=== PATIENT | female | born 1955 | race Two or more races ===

== ENCOUNTER 2020-06-07 16:38 | Emergency (ER) | payer OTHER ==
[~2020-06-07] VITALS: Ht 154.9 cm; Wt 65.3 kg
[2020-06-07 16:56] VITALS: BP 135/87
--- NOTE | 2020-06-07 17:59 | NUR ---
COVID SWAB SENT. DPatient discharged to home in stable condition. Written and verbal after care instructions given. Patient verbalizes understanding of instruction.
== END 2020-06-07 18:00 | disposition home or self-care (01) ==
LOC: ER 16:45
DX: U07.1 COVID-19 (principal); R51.9 Headache, unspecified; M79.10 Myalgia, unspecified site; Z86.718 Personal history of other venous thrombosis and embolism; Z87.442 Personal history of urinary calculi
CPT/HCPCS: 99283; C9803; U0003

== ENCOUNTER 2020-07-10 08:04 | Emergency (ER) | payer BC, OTHER ==
[~2020-07-10] VITALS: Ht 154.9 cm; Wt 59.0 kg
--- NOTE | 2020-07-10 08:04 | NUR ---
PT BIB SELF C/O RLE PAIN AND SWELLING, HX OF DVT. FATIGUE AND FEELING SOB. PT IS AAOX4, NOT IN RESPIRATORY DISTRESS, V/S STABLE, KEPT RESTED AND COMFORTABLE. WILL CONTINUE TO MONITOR.
--- NOTE | 2020-07-10 08:42 | NUR ---
PT SEEN AND EXAMINED BY .
--- NOTE | 2020-07-10 08:48 | NUR ---
ER PHLEB AT BEDSIDE FOR BLOOD DRAW.
[2020-07-10 09:10] LABS: BASOPHILS # (AUTO) 0.1 /CMM (0.0-0.2); BASOPHILS % (AUTO) 1.4 % (0.0-2.0); EOSINOPHILS % (AUTO) 4.1 % (0.0-6.0); HEMATOCRIT 39 % (33-45); LYMPHOCYTES # (AUTO) 2.4 /CMM (0.8-4.8); LYMPHOCYTES % (AUTO) 43.1 % (20.0-44.0); MEAN CORPUSCULAR HGB CONC 34 g/dl (31.0-36.0); MEAN CORPUSCULAR VOLUME 93 fL (82-100); MONOCYTES # (AUTO) 0.4 /CMM (0.1-1.30); MONOCYTES % (AUTO) 7.3 % (2.0-12.0); NEUTROPHILS # (AUTO) 2.4 /CMM (1.8-8.9); NEUTROPHILS % (AUTO) 44.1 % (43.0-81.0); PLATELET COUNT (AUTO) 180 /CMM (150-450); RED BLOOD CELL COUNT(AUTO) 4.16 MIL/uL (4.0-5.2); WHITE BLOOD COUNT (AUTO) 5.5 K/uL (4.3-11.0)
[2020-07-10 09:29] LABS: CALCIUM, SERUM 8.9 mg/dL (8.5-10.1); CARBON DIOXIDE 29 mmol/L (21-32); CHLORIDE 103 mmol/L (98-107); CREATININE 0.9 mg/dL (0.6-1.3); GLUCOSE 120 mg/dL (74-106); POTASSIUM 3.1 mmol/L (3.5-5.1); SODIUM SERUM 141 mmol/L (136-145); UREA NITROGEN, BLOOD 15 mg/dL (7-18)
[2020-07-10 09:41] LABS: B-TYPE NATRIURETIC PEPTIDE 92 PG/ML (0-125)
--- NOTE | 2020-07-10 09:46 | NUR ---
STORE KEEPER AT BEDSIDE FOR XRAY.
--- NOTE | 2020-07-10 12:16 | NUR ---
PICKED UP BY [employer] VIA [facility] FOR CTA
[2020-07-10] MEDS ORDERED: IOHEXOL-350 100 ML VIAL IV ONE (12:20)
[2020-07-10] MEDS ORDERED: IV NS 0.9% 250 ML IV ONE (12:20)
--- NOTE | 2020-07-10 12:49 | NUR ---
PATIENT BACK FROM CTA
--- NOTE | 2020-07-10 13:45 | NUR ---
IV removed. Catheter intact and site benign. Pressure and 4x4 applied to site. No bleeding noted.Patient discharged to home in stable condition. Written and verbal after care instructions given. Patient verbalizes understanding of instruction.
[2020-07-10 13:49] VITALS: BP 122/67
== END 2020-07-10 13:49 | disposition home or self-care (01) ==
LOC: ER 08:08
DX: R06.02 Shortness of breath (principal); Z87.442 Personal history of urinary calculi
CPT/HCPCS: 36415; 71045; 71275; 80048; 83880; 84484; 85025; 85378; 93005; 93971; 99285; J7050; Q9967

== ENCOUNTER 2021-02-25 20:21 | Emergency (ER) | payer BC, OTHER ==
[~2021-02-25] VITALS: Ht 154.9 cm; Wt 63.5 kg
[2021-02-25 21:06] VITALS: BP 150/75
[2021-02-25] MEDS ORDERED: TRIA15CR2 TP (21:35)
[2021-02-25] MEDS ORDERED: LORA10TA68 PO (21:35)
== END 2021-02-25 21:40 | disposition home or self-care (01) ==
LOC: ER 20:30
DX: S40.862A Insect bite (nonvenomous) of left upper arm, initial encounter (principal); S40.861A Insect bite (nonvenomous) of right upper arm, initial encounter; S80.862A Insect bite (nonvenomous), left lower leg, initial encounter; S80.861A Insect bite (nonvenomous), right lower leg, initial encounter; Z79.899 Other long term (current) drug therapy; W57.XXXA Bitten or stung by nonvenomous insect and other nonvenomous arthropods, initial encounter; Y93.89 Activity, other specified; Y92.89 Other specified places as the place of occurrence of the external cause; Y99.8 Other external cause status

== ENCOUNTER 2021-03-06 09:38 | Outpatient (CLI) | payer BC, OTHER ==
[~2021-03-06 09:38] MED LIST: LORA10TA68 PO; TRIA15CR2 TP
[2021-03-06 12:47] LABS: BASOPHILS # (AUTO) 0.1 K/uL (0.0-0.2); BASOPHILS % (AUTO) 0.9 % (0.0-2.0); EOSINOPHILS % (AUTO) 3.1 % (0.0-6.0); HEMATOCRIT 44 % (33-45); HEMOGLOBIN 14.9 g/dL (11.5-14.8); LYMPHOCYTES # (AUTO) 2.5 K/uL (0.8-4.8); MEAN CORPUSCULAR HGB CONC 34 g/dl (31.0-36.0); MEAN CORPUSCULAR VOLUME 93 fL (82-100); MONOCYTES # (AUTO) 0.4 K/uL (0.1-1.30); MONOCYTES % (AUTO) 6.9 % (2.0-12.0); NEUTROPHILS # (AUTO) 2.4 K/uL (1.8-8.9); NEUTROPHILS % (AUTO) 44.1 % (43.0-81.0); PLATELET COUNT (AUTO) 173 K/uL (150-450); RED BLOOD CELL COUNT(AUTO) 4.71 MIL/uL (4.0-5.2); WHITE BLOOD COUNT (AUTO) 5.5 K/uL (4.3-11.0)
[2021-03-06 13:05] LABS: BILIRUBIN,URINE NEGATIVE (NEGATIVE); COLOR,URINE YELLOW (YELLOW); LEUKOCYTE ESTERASE ,URINE NEGATIVE (NEGATIVE); NITRITE, URINE NEGATIVE (NEGATIVE); PROTEIN,URINE NEGATIVE (NEGATIVE); UGLUCOSE NEGATIVE (NEGATIVE); UROBILINOGEN,URINE 0.2 EU/dL (0.2)
[2021-03-06 13:17] LABS: ALBUMIN 3.8 g/dL (3.4-5.0); BILIRUBIN,TOTAL 0.5 mg/dL (0.2-1.0); CALCIUM, SERUM 8.8 mg/dL (8.5-10.1); CREATININE 0.7 mg/dL (0.6-1.3); POTASSIUM 3.9 mmol/L (3.5-5.1); TOTAL PROTEIN, SERUM 7.6 g/dL (6.4-8.2)
[2021-03-06 13:28] LABS: FREE T4 (FREE THYROXINE) 0.9 ng/dL (0.76-1.46); THYROID STIMULATING HORMONE 2.869 uIU/mL (0.358-3.74)
== END 2021-03-06 23:59 | disposition home or self-care (01) ==
LOC: LAB 09:38
PROVIDERS: ATTEND Family Medicine
DX: E78.2 Mixed hyperlipidemia (principal); E55.9 Vitamin D deficiency, unspecified; N95.0 Postmenopausal bleeding; Z00.01 Encounter for general adult medical examination with abnormal findings; Z23 Encounter for immunization
CPT/HCPCS: 36415; 80053-TC; 80061-TC; 82306; 84439-TC; 84443-TC; 85025-TC; 86803

== ENCOUNTER 2021-03-12 08:46 | Outpatient (CLI) | payer BC, OTHER | END 2021-03-12 23:59 | disposition home or self-care (01) | LOC: US 08:46 | PROVIDERS: ATTEND Family Medicine | DX: N95.0 Postmenopausal bleeding (principal) | CPT/HCPCS: 76856-TC ==

== ENCOUNTER 2021-07-22 07:52 | Outpatient (CLI) | payer BC, OTHER ==
[2021-07-22 08:46] LABS: BASOPHILS % (AUTO) 0.5 % (0.0-2.0); EOSINOPHILS % (AUTO) 2.1 % (0.0-6.0); HEMATOCRIT 41 % (33-45); HEMOGLOBIN 13.8 g/dL (11.5-14.8); LYMPHOCYTES # (AUTO) 2.7 K/uL (0.8-4.8); LYMPHOCYTES % (AUTO) 45.1 % (20.0-44.0); MEAN CORPUSCULAR HGB CONC 33 g/dl (31.0-36.0); MEAN CORPUSCULAR VOLUME 93 fL (82-100); MONOCYTES # (AUTO) 0.4 K/uL (0.1-1.30); MONOCYTES % (AUTO) 6.6 % (2.0-12.0); NEUTROPHILS # (AUTO) 2.8 K/uL (1.8-8.9); NEUTROPHILS % (AUTO) 45.7 % (43.0-81.0); PLATELET COUNT (AUTO) 172 K/uL (150-450); RED BLOOD CELL COUNT(AUTO) 4.42 MIL/uL (4.0-5.2); WHITE BLOOD COUNT (AUTO) 6.1 K/uL (4.3-11.0)
[2021-07-22 09:55] LABS: ALBUMIN 3.7 g/dL (3.4-5.0); BILIRUBIN,TOTAL 0.4 mg/dL (0.2-1.0); CALCIUM, SERUM 9.5 mg/dL (8.5-10.1); CREATININE 0.8 mg/dL (0.6-1.3); TOTAL PROTEIN, SERUM 7.2 g/dL (6.4-8.2)
[2021-07-22 13:08] LABS: FREE T4 (FREE THYROXINE) 1.01 ng/dL (0.76-1.46); THYROID STIMULATING HORMONE 2.584 uIU/mL (0.358-3.74)
== END 2021-07-22 23:59 | disposition home or self-care (01) ==
LOC: LAB 07:52
PROVIDERS: ATTEND Family Medicine
DX: K57.32 Diverticulitis of large intestine without perforation or abscess without bleeding (principal); N32.9 Bladder disorder, unspecified
CPT/HCPCS: 36415; 80053-TC; 80061-TC; 82607-TC; 82728-TC; 83540-TC; 84439-TC; 84443-TC; 85025-TC

== ENCOUNTER 2021-08-05 09:00 | Outpatient (CLI) | payer BC, OTHER ==
[2021-08-05 14:44] LABS: ALBUMIN 3.6 g/dL (3.4-5.0); BILIRUBIN,TOTAL 0.5 mg/dL (0.2-1.0); CALCIUM, SERUM 9.1 mg/dL (8.5-10.1); CREATININE 0.8 mg/dL (0.6-1.3); POTASSIUM 4.1 mmol/L (3.5-5.1); TOTAL PROTEIN, SERUM 7.2 g/dL (6.4-8.2)
[2021-08-05 16:50] LABS: URIC ACID 6.1 mg/dL (2.6-7.2)
== END 2021-08-05 23:59 | disposition home or self-care (01) ==
LOC: LAB 09:00
PROVIDERS: ATTEND Surgery
DX: N81.10 Cystocele, unspecified (principal); R31.0 Gross hematuria
CPT/HCPCS: 36415; 80053-TC; 83970; 84550-TC

== ENCOUNTER 2021-12-02 01:23 | Emergency (ER) | payer BC, OTHER ==
[~2021-12-02] VITALS: Ht 154.9 cm; Wt 63.5 kg
[2021-12-02 01:24] VITALS: BP 129/77
--- NOTE | 2021-12-02 01:25 | NUR ---
johnnie from work c/o pain with urination
[2021-12-02 02:32] LABS: BILIRUBIN,URINE NEGATIVE (NEGATIVE); COLOR,URINE YELLOW (YELLOW); LEUKOCYTE ESTERASE ,URINE LARGE (NEGATIVE); NITRITE, URINE POSITIVE (NEGATIVE); PROTEIN,URINE 100 mg/dl (NEGATIVE); UGLUCOSE NEGATIVE (NEGATIVE); UROBILINOGEN,URINE 0.2 EU/dL (0.2)
[2021-12-02] MEDS ORDERED: CEPH500C2 PO ×2 (02:54→03:03)
[2021-12-02] MEDS ORDERED: CEPHALEXIN MONOHYDRATE 500 MG CAPSULE PO ONE ×2 (02:57→03:00)
--- NOTE | 2021-12-02 03:02 | NUR ---
Patient discharged to home in stable condition. Written and verbal after care instructions given. Patient verbalizes understanding of instruction.
[2021-12-02 03:12] LABS: BACTERIA,URINE MANY /HPF (None Seen); RBC,URINE TOO NUMEROUS TO COUN /HPF (0-2); SQUAMOUS EPITHELIAL CELL,UR FEW /HPF (None Seen); WBC,URINE TOO NUMEROUS TO COUN /HPF (0-3)
== END 2021-12-02 03:04 | disposition home or self-care (01) ==
LOC: ER 01:25
DX: N39.0 Urinary tract infection, site not specified (principal); Z87.442 Personal history of urinary calculi; Z79.899 Other long term (current) drug therapy
CPT/HCPCS: 81001; 87086-TC; 87186-TC

== ENCOUNTER 2022-06-07 08:23 | Inpatient (IN) | payer BC, OTHER ==
[~2022-06-07] VITALS: Ht 154.9 cm; Wt 67.1 kg
[~2022-06-07 08:23] MED LIST changes: +CEPH500C2 PO
--- NOTE | 2022-06-07 08:45 | NUR ---
RECEIVED PT 67 YRS FEMALE FROM WORK C/O SWALLEN ON RT LEG MORE THEN LEFT
--- NOTE | 2022-06-07 08:51 | NUR ---
DR BAJWA AT BEDSIDE FOR EVAL
--- NOTE | 2022-06-07 09:05 | NUR ---
URINE SAMPLE PROVIDED BY RICARDO
--- NOTE | 2022-06-07 09:17 | NUR ---
INSERTED ANGO CATHETER ON RT ACG 20 BLOOD DROW AND SENT TO LAB
[2022-06-07 09:22] LABS: BASOPHILS % (AUTO) 0.4 % (0.0-2.0); EOSINOPHILS % (AUTO) 3.2 % (0.0-6.0); HEMATOCRIT 43 % (33-45); HEMOGLOBIN 14.2 g/dL (11.5-14.8); LYMPHOCYTES # (AUTO) 2.9 K/uL (0.8-4.8); LYMPHOCYTES % (AUTO) 47.5 % (20.0-44.0); MEAN CORPUSCULAR HGB CONC 33 g/dl (31.0-36.0); MEAN CORPUSCULAR VOLUME 93 fL (82-100); MONOCYTES # (AUTO) 0.4 K/uL (0.1-1.30); NEUTROPHILS # (AUTO) 2.6 K/uL (1.8-8.9); NEUTROPHILS % (AUTO) 42.9 % (43.0-81.0); PLATELET COUNT (AUTO) 174 K/uL (150-450); WHITE BLOOD COUNT (AUTO) 6.1 K/uL (4.3-11.0)
--- NOTE | 2022-06-07 09:25 | NUR ---
TECH AT BEDSIDE FOR ULTRASOUND
[2022-06-07 09:36] LABS: CALCIUM, SERUM 8.5 mg/dL (8.5-10.1); CARBON DIOXIDE 30 mmol/L (21-32); CHLORIDE 103 mmol/L (98-107); CREATININE 0.8 mg/dL (0.6-1.3); GLUCOSE 122 mg/dL (74-106); POTASSIUM 3.5 mmol/L (3.5-5.1); SODIUM SERUM 137 mmol/L (136-145); UREA NITROGEN, BLOOD 14 mg/dL (7-18)
--- NOTE | 2022-06-07 09:50 | NUR ---
NOTEFED AND AWARE POSTIVE DVT ON RT LEG
[2022-06-07] MEDS ORDERED: ASCO-352 PO (10:25)
[2022-06-07] MEDS ORDERED: CHOL100043 PO (10:25)
--- NOTE | 2022-06-07 10:27 | NUR ---
MRSA and COVID swabs obtained and placed in drop-off box
--- NOTE | 2022-06-07 10:30 | NUR ---
BEED 111-1
--- NOTE | 2022-06-07 10:39 | NUR ---
PT VERBALIZED THAT SHE DOES NOT WANT TO BE ADMITTED. DR BAJWA MADE AWARE.
[2022-06-07] MEDS ORDERED: CT SWABBABLE VALVE TRANS SET 1 EA INFUS.SET MC ONE (10:54)
[2022-06-07] MEDS ORDERED: IOHEXOL-350 100 ML VIAL IV ONE (10:54)
[2022-06-07] MEDS ORDERED: IV NS 0.9% 250 ML IV ONE (10:54)
--- NOTE | 2022-06-07 10:58 | NUR ---
PT TAKEN TO RADIOLOGY FOR CT
--- NOTE | 2022-06-07 11:14 | NUR ---
PT RETURNED FROM RADIOLOGY
[2022-06-07] MEDS ORDERED: HEPARIN INFUSION/D5W 500 ML IV ONE (12:00)
--- NOTE | 2022-06-07 12:10 | NUR ---
HAND OFF PEDRO PABLO RN TO ROOM 111-1 STABLE CONDITION AND VS
--- NOTE | 2022-06-07 12:25 | NUR ---
DR GOFF AT BEDSIDE W/ PT
[2022-06-07] MEDS ORDERED: Z GUARD REMEDY 4 OZ OINT TP PRN (12:30)
[2022-06-07] MEDS ORDERED: MAGNESIUM HYDROXIDE 30 ML UDC PO PRN (12:30)
[2022-06-07] MEDS ORDERED: ONDANSETRON HCL/PF 4 MG/2 ML VIAL IVP PRN (12:30)
[2022-06-07] MEDS ORDERED: HYDROCODONE/APAP 5/325MG TABLET PO PRN (12:30)
[2022-06-07] MEDS ORDERED: MAG HYDROX/AL HYDROX/SIMETH 30 ML UDC PO PRN (12:30)
[2022-06-07] MEDS ORDERED: TEMAZEPAM 15 MG CAPSULE PO PRN (12:30)
--- NOTE | 2022-06-07 12:30 | NUR ---
PER DR GOFF, DON'T GIVE THE HEPARIN DRIP FOR NOW
[2022-06-07] MEDS ORDERED: ENOXAPARIN SODIUM 60 MG/0.6 ML DISP.SYRIN SQ ONE (12:41)
[2022-06-07] MEDS: ENOXAPARIN SODIUM 60 MG/0.6 ML DISP.SYRIN SQ SCH ×2 (12:45→22:36)
--- NOTE | 2022-06-07 13:14 | NUR ---
ECCHOCARDO CLARE AT BED SIDE
--- NOTE | 2022-06-07 14:25 | NUR ---
REPAIRER AND CHECKER NOTE ADMIT 67 YEAR OLD FEMALE TO [facility] UN[facility] AT TELE MONITORING,AT ROOM 111,ALERT ORIENTED X4 VERBALLY RESPONSIVE ON ROOM AIR O2:99% ADMITTING DIAGNOSIS IS ACUTE PE,IV SITE IS ON RIGHT AC INTACT PATENT SAFETY MEASURE IMPLEMENT BED IN LOW POSITION AND LOCKED,CALL LIGHT WITHIN REACH CONTINUE TO MONITOR.
--- NOTE | 2022-06-07 14:28 | NUR ---
PT TRANSFERRED TO 111-1 VIA [facility] ACLS PROTOCOL. WARM HANDOFF GIVEN TO VICTORINA CHAMORRO
[2022-06-07 14:30] VITALS: BP 151/60
[2022-06-07] MEDS ORDERED: MORPHINE SULFATE INJ 4 MG/ML DISP.SYRIN IV PRN (14:30)
[2022-06-07 16:00] VITALS: BP 121/80
--- NOTE | 2022-06-07 18:16 | NUR ---
RN NOTE PATIENT REMAINS ALERT ORIENTED X4 VERBALLY RESPONSIVE ON ROOM AIR NO SOB NOT ACUTE DISTRESS NOTED,WILL ENDORSE NEXT COMING SHIFT FOR CONTINUATION OF CARE.
[2022-06-07] MEDS: ACETAMINOPHEN 325 MG TABLET PO PRN (19:47)
[2022-06-07 20:00] VITALS: BP 132/55
--- NOTE | 2022-06-07 20:04 | NUR ---
TEL RN OPENING NOTES: RECEIVED PATIENT AWAKE IN BED, BED IN LOW POSITION CALL LIGHTS WITHIN REACH, NO COMPLAIN OF PAIN AND DISCOMFORT AT THIS TIME, ON ROOM AIR SATURATING WELL, PATIENT IS A/OX4 ABLE TO MAKE NEEDS KNOWN, AMBULATORY , ON TELEMONITOR- SR-[id number], PATIENT KEPT CLEAN AND DRY ALL NEEDS MET WILL CONTINUE TO MONITOR.
[2022-06-08] VITALS: BP 132/86
--- NOTE | 2022-06-08 | NUR ---
RN opening notes Received Pt from VICTORINA Muir. Pt is alert and orientedX4. On room air. No SOB. No S/S of distress noted. VS is stable. afebrile. Tele monitor showed SR. Ambulates with a steady gait. Safety precautions is maintained. bed at low position, brakes locked, side rails upX2, hob elevated and call light is within reach. Will continue to monitor.
--- NOTE | 2022-06-08 00:15 | NUR ---
ASBESTOS BRAKE LINING FINISHER HELPER NOTES: PATIENT WAS TRANSFER TO ROOM 329 ON STABLE CONDITION 2344 , NO COMPLAIN OF PAIN AND DISCOMFORT AT THIS TIME, ON ROOM AIR SATURATING WELL, ON TELE MONITOR CONNECTED DURING TRANSFER, PLACE COMFORTABLY AT ROOM 329-2, ENDORSE TO RN CHASE, INFORMATION AND PATIENT PERSONAL BELONGINGS,
--- NOTE | 2022-06-08 02:52 | NUR ---
RN notes Received a phone call from labAnna regarding anti thrombin III antigen and activity. informed Anna that ordered to be collected for am lab. Lab will follow up with am phlebotomy to collect.
[2022-06-08 04:00] VITALS: BP 126/82
--- NOTE | 2022-06-08 04:20 | NUR ---
RN notes Pt is complaining of itchy and requesting meds. Notify and informed Dr. Mcknight. ordered benadryl 25 mg/po/one time. order carry out.
[2022-06-08] MEDS ORDERED: diphenhydrAMINE HCL 25 MG CAPSULE PO ONE (04:30)
[2022-06-08 06:38] LABS: BASOPHILS # (AUTO) 0.2 K/uL (0.0-0.2); BASOPHILS % (AUTO) 2.4 % (0.0-2.0); EOSINOPHILS % (AUTO) 2.7 % (0.0-6.0); HEMATOCRIT 41 % (33-45); HEMOGLOBIN 13.6 g/dL (11.5-14.8); LYMPHOCYTES # (AUTO) 2.6 K/uL (0.8-4.8); LYMPHOCYTES % (AUTO) 37.5 % (20.0-44.0); MEAN CORPUSCULAR HGB CONC 33 g/dl (31.0-36.0); MEAN CORPUSCULAR VOLUME 94 fL (82-100); MONOCYTES # (AUTO) 0.5 K/uL (0.1-1.30); MONOCYTES % (AUTO) 6.5 % (2.0-12.0); NEUTROPHILS # (AUTO) 3.6 K/uL (1.8-8.9); NEUTROPHILS % (AUTO) 50.9 % (43.0-81.0); PLATELET COUNT (AUTO) 160 K/uL (150-450); WHITE BLOOD COUNT (AUTO) 7.1 K/uL (4.3-11.0)
[2022-06-08] MEDS: PANTOPRAZOLE 40 MG TABLET.DR PO SCH (07:06)
[2022-06-08 07:12] LABS: THYROID STIMULATING HORMONE 2.991 uIU/mL (0.358-3.74)
[2022-06-08 07:31] LABS: CALCIUM, SERUM 8.3 mg/dL (8.5-10.1); CREATININE 0.8 mg/dL (0.6-1.3); MAGNESIUM 2.4 mg/dL (1.8-2.4); PHOSPHORUS 4.1 mg/dL (2.5-4.9); POTASSIUM 3.9 mmol/L (3.5-5.1)
[2022-06-08 08:00] VITALS: BP 103/63
[2022-06-08] MEDS: ENOXAPARIN SODIUM 60 MG/0.6 ML DISP.SYRIN SQ SCH ×2 (08:39→20:44)
--- NOTE | 2022-06-08 11:37 | NUR ---
RN closing notes Pt is resting in bed comfortably. Pt is alert and orientedX4. On room air. No SOB. No S/S of distress noted. VS is stable. afebrile. Iv site at RAC# 22 is clean, intact and SL. Tele monitor showed SR. Routine meds were given as ordered. Kept Pt clean, dry and comfortable. Safety precautions is maintained. bed at low position, brakes locked, side rails upX2, hob elevated and call light is within reach. Will endorse to am nurse for MABEL.
[2022-06-08] MEDS: FAMOTIDINE (20 MG) 20 MG TABLET PO SCH (11:39)
--- NOTE | 2022-06-08 11:40 | NUR ---
MS/MACHINE OILER OPENING NOTE RECEIVED REPORT FROM MANSI PRAJAPATI for continuity of care
[2022-06-08 12:00] VITALS: BP 106/51
[2022-06-08 16:00] VITALS: BP 105/60
[2022-06-08] MEDS: diphenhydrAMINE HCL 25 MG CAPSULE PO PRN (17:04)
--- NOTE | 2022-06-08 19:47 | NUR ---
rn closing note PT RESTING IN BED COMFORTABLY. PT A/0 X4.ON ROOM AIR TOLERATING WELL AT 96%. NO SIGNS OF PAIN OR DISCOMFORT NOTED AT THIS TIME. PT HAS IV ACCESS ON RAC, INTACT, PATENT AND FLUSHES WELL.PT IS ON TELE MONITOR SR. ALL SAFETY MEASURE IN PLACE. BED LOCKED AT LOWEST POSITION. SIDE RAILS UP X2. BEDSIDE AND CALL LIGHT WITHIN REACH OF PT.ENDORSED TO WEEKEND ANCHOR RN FOR CONTINUITY OF CARE
--- NOTE | 2022-06-08 19:48 | NUR ---
RN OPENING NOTES RECEIVED PT IN BED, AWAKE WITH VISITOR AT BEDSIDE. AOx4, PLEASANT AND ABLE TO MAKE NEEDS KNOWN. ON RA AND TOLERATING WELL. NO SOB NOTED. NO S/SX OF RESPIRATORY DISTRESS NOTED. TELE MONITOR DETECTS SINUS RHYTHM. IV ACCESS IN RAC #22G. IV IS INTACT, PATENT, AND FLUSHING WELL. NO COMPLAINTS OF PAIN AT THIS TIME. SAFETY PRECAUTIONS IN PLACE: BED IN LOWEST, LOCKED POSITION, SIDERAILS UPx2, AND BRAKES ON. TABLE AND CALL LIGHT WITHIN REACH. ALL NEEDS MET AT THIS TIME.
[2022-06-08 21:12] VITALS: BP 99/66
[2022-06-09 00:57] VITALS: BP 121/55
[2022-06-09 04:55] VITALS: BP 105/57
[2022-06-09] MEDS: diphenhydrAMINE HCL 25 MG CAPSULE PO PRN (06:19)
[2022-06-09 07:07] LABS: BASOPHILS % (AUTO) 0.4 % (0.0-2.0); EOSINOPHILS % (AUTO) 2.3 % (0.0-6.0); HEMATOCRIT 42 % (33-45); HEMOGLOBIN 14.2 g/dL (11.5-14.8); LYMPHOCYTES # (AUTO) 2.4 K/uL (0.8-4.8); LYMPHOCYTES % (AUTO) 37.1 % (20.0-44.0); MEAN CORPUSCULAR HGB CONC 34 g/dl (31.0-36.0); MEAN CORPUSCULAR VOLUME 92 fL (82-100); MONOCYTES # (AUTO) 0.3 K/uL (0.1-1.30); MONOCYTES % (AUTO) 5.2 % (2.0-12.0); NEUTROPHILS # (AUTO) 3.6 K/uL (1.8-8.9); PLATELET COUNT (AUTO) 167 K/uL (150-450); RED BLOOD CELL COUNT(AUTO) 4.55 MIL/uL (4.0-5.2); WHITE BLOOD COUNT (AUTO) 6.5 K/uL (4.3-11.0)
--- NOTE | 2022-06-09 07:55 | NUR ---
HEAD BANQUET WAITRESS OPENING NOTES: RECEIVED PATIENT AWAKE IN BED. PT IS A/O X 4. ABLE TO MAKE NEEDS KNOWN. IS ON RA, BREATHING EVEN AND NONLABORED. NO S/S OF SOB OR DISTRESS NOTED AT THIS TIME; NO COMPLAIN OF HAVING PAIN. PATIENT IS ON EXTERNAL HAND SPRING FORMER. IV ACCESS: RAC #22G, INTACT AND PATENT. SAFETY PRECAUTIONS IN PLACE: CALL LIGHT AND TABLE WITHIN REACH, HOB ELEVATED. SIDE RAILS UP X 2, BED IN LOWEST AND LOCKED POSITION. WILL CONTINUE MONITOR PATIENT'S CONDITION THROUGH THE SHIFT AND PROVIDE THE CARE.
[2022-06-09 08:00] VITALS: BP 148/82
[2022-06-09] MEDS: PANTOPRAZOLE 40 MG TABLET.DR PO SCH (08:47)
[2022-06-09] MEDS: FAMOTIDINE (20 MG) 20 MG TABLET PO SCH (08:47)
[2022-06-09] MEDS: ENOXAPARIN SODIUM 60 MG/0.6 ML DISP.SYRIN SQ SCH (08:48)
[2022-06-09] MEDS ORDERED: HYDR-3972 PO (11:41)
[2022-06-09] MEDS ORDERED: CYCL10TA9 PO (11:41)
[2022-06-09 12:00] VITALS: BP 141/70
[2022-06-09] MEDS: ACETAMINOPHEN 325 MG TABLET PO PRN (14:41)
--- NOTE | 2022-06-09 15:30 | NUR ---
NUCLEAR MEDICINE OFFICER NOTE PATIENT DISCHARGE IN STABLE MEDICAL CONDITION. A/OX4. VS TAKEN. STABLE AND RECORDED. NO IV ACCESS. NAME ARM BAND REMOVED. EXTERNAL CIGAR TOBACCO PROCESSING SUPERVISOR REMOVED AND RETURNED TO TELE DESK. SKIN ASSESSMENT DONE. ALL BELONGINGS CHECKED AND BELONGING LIST SIGNED. HEALTH TEACHING AND DISCHARGE INSTRUCTION GIVEN AND VERBALIZED UNDERSTANDING. DISCUSSED PRESCRIPTION WITH PATIENT. PATIENT LEFT VIA PRIVATE CAR. ESCORTED PATIENT TO THE EXIT. CHARGE NURSE AWARE OF DISCHARGE.
[2022-06-10 19:06] LABS: *CARD ANTI-CARDIOLIPIN AB IgG <9 GPL U/mL (0-14); *CARD ANTI-CARDIOLIPIN AB IgM <9 MPL U/mL (0-12)
[2022-06-10 23:06] LABS: *DILUTE PROTHROMBIN TIME (dPT) 43.2 sec (0.0-47.6); *dPT CONFIRM RATIO 0.68 Ratio (0.00-1.34)
[2022-06-13 15:06] LABS: *FACTOR II, DNA ANALYSIS Negative (.)
== END 2022-06-09 15:51 | disposition home or self-care (01) | DRG 176 ==
LOC: ER 08:25 → TELE1 13:45 → TELE 23:50
PROVIDERS: ADMIT Nurse Practitioner Acute Care; ATTEND Nurse Practitioner Acute Care
DX: I26.99 Other pulmonary embolism without acute cor pulmonale (principal); I82.431 Acute embolism and thrombosis of right popliteal vein; Z20.822 Contact with and (suspected) exposure to COVID-19; Z87.442 Personal history of urinary calculi; Z86.718 Personal history of other venous thrombosis and embolism; T78.49XA Other allergy, initial encounter; X58.XXXA Exposure to other specified factors, initial encounter
CPT/HCPCS: 36415; 71045-TC; 80048-TC; 80061-TC; 81240; 81241; 82607-TC; 83090; 83735-TC; 84100-TC; 84443-TC; 84484-TC; 85025-TC; 85300; 85303; 85378-TC; 85613; 85670; 85705; 85730-TC; 85732; 86147; 87081-TC; 93307-TC; 93970-TC; C9803; G0378; J1650; J7050; Q0163; Q9967

== ENCOUNTER 2022-08-11 07:56 | Outpatient (CLI) | payer BC, OTHER ==
[~2022-08-11 07:56] MED LIST changes: +ASCO-352 PO; -CEPH500C2 PO; +CHOL100043 PO; +CYCL10TA9 PO; +HYDR-3972 PO; -LORA10TA68 PO; -TRIA15CR2 TP
[2022-08-11 08:31] LABS: BASOPHILS % (AUTO) 0.7 % (0.0-2.0); EOSINOPHILS % (AUTO) 2.6 % (0.0-6.0); HEMATOCRIT 40 % (33-45); HEMOGLOBIN 13.4 g/dL (11.5-14.8); LYMPHOCYTES # (AUTO) 2.9 K/uL (0.8-4.8); LYMPHOCYTES % (AUTO) 43.3 % (20.0-44.0); MEAN CORPUSCULAR HGB CONC 33 g/dl (31.0-36.0); MEAN CORPUSCULAR VOLUME 92 fL (82-100); MONOCYTES # (AUTO) 0.4 K/uL (0.1-1.30); MONOCYTES % (AUTO) 6.8 % (2.0-12.0); NEUTROPHILS # (AUTO) 3.1 K/uL (1.8-8.9); NEUTROPHILS % (AUTO) 46.6 % (43.0-81.0); PLATELET COUNT (AUTO) 257 K/uL (150-450); RED BLOOD CELL COUNT(AUTO) 4.38 MIL/uL (4.0-5.2); WHITE BLOOD COUNT (AUTO) 6.6 K/uL (4.3-11.0)
[2022-08-11 08:44] LABS: ALBUMIN 3.5 g/dL (3.4-5.0); BILIRUBIN,TOTAL 0.4 mg/dL (0.2-1.0); CALCIUM, SERUM 8.9 mg/dL (8.5-10.1); CREATININE 0.9 mg/dL (0.6-1.3); POTASSIUM 3.8 mmol/L (3.5-5.1); TOTAL PROTEIN, SERUM 7.5 g/dL (6.4-8.2)
[2022-08-11] MEDS ORDERED: IOHEXOL-300 100 ML VIAL IV ONE (10:23)
[2022-08-11] MEDS ORDERED: IV NS 0.9% 250 ML IV ONE (10:23)
[2022-08-11] MEDS ORDERED: CT SWABBABLE VALVE TRANS SET 1 EA INFUS.SET MC ONE (10:23)
== END 2022-08-11 23:59 | disposition home or self-care (01) ==
LOC: CT 07:56
PROVIDERS: ATTEND Internal Medicine Hematology & Oncology
DX: Z13.228 Encounter for screening for other metabolic disorders (principal); R97.0 Elevated carcinoembryonic antigen [CEA]; D64.9 Anemia, unspecified; E72.20 Disorder of urea cycle metabolism, unspecified; M47.817 Spondylosis without myelopathy or radiculopathy, lumbosacral region; N20.0 Calculus of kidney; I70.0 Atherosclerosis of aorta; K57.30 Diverticulosis of large intestine without perforation or abscess without bleeding
CPT/HCPCS: 74178; 85025; 85378; 36415; 80053; J7050; Q9967

== ENCOUNTER 2022-09-03 07:50 | Outpatient (CLI) | payer BC, OTHER ==
[2022-09-03 09:20] LABS: BASOPHILS % (AUTO) 0.7 % (0.0-2.0); EOSINOPHILS % (AUTO) 3.1 % (0.0-6.0); HEMATOCRIT 42 % (33-45); HEMOGLOBIN 13.8 g/dL (11.5-14.8); LYMPHOCYTES # (AUTO) 2.7 K/uL (0.8-4.8); MEAN CORPUSCULAR HGB CONC 33 g/dl (31.0-36.0); MEAN CORPUSCULAR VOLUME 93 fL (82-100); MONOCYTES # (AUTO) 0.4 K/uL (0.1-1.30); MONOCYTES % (AUTO) 7.2 % (2.0-12.0); NEUTROPHILS # (AUTO) 2.5 K/uL (1.8-8.9); PLATELET COUNT (AUTO) 174 K/uL (150-450); RED BLOOD CELL COUNT(AUTO) 4.53 MIL/uL (4.0-5.2); WHITE BLOOD COUNT (AUTO) 5.8 K/uL (4.3-11.0)
[2022-09-03 10:00] LABS: ALBUMIN 3.7 g/dL (3.4-5.0); BILIRUBIN,TOTAL 0.5 mg/dL (0.2-1.0); CALCIUM, SERUM 9.1 mg/dL (8.5-10.1); CREATININE 0.9 mg/dL (0.6-1.3); POTASSIUM 3.7 mmol/L (3.5-5.1); TOTAL PROTEIN, SERUM 7.5 g/dL (6.4-8.2)
== END 2022-09-03 23:59 | disposition home or self-care (01) ==
LOC: CARD 07:50
PROVIDERS: ATTEND Internal Medicine Hematology & Oncology
DX: Z13.228 Encounter for screening for other metabolic disorders (principal); I82.403 Acute embolism and thrombosis of unspecified deep veins of lower extremity, bilateral; D64.9 Anemia, unspecified; D68.59 Other primary thrombophilia; R97.0 Elevated carcinoembryonic antigen [CEA]
CPT/HCPCS: 80053-TC; 85025-TC; 85300; 85378-TC; 93970-TC

== ENCOUNTER 2022-10-15 08:19 | Outpatient (CLI) | payer BC, OTHER ==
[2022-10-15 08:56] LABS: BASOPHILS % (AUTO) 0.6 % (0.0-2.0); EOSINOPHILS % (AUTO) 2.9 % (0.0-6.0); HEMATOCRIT 44 % (33-45); HEMOGLOBIN 14.5 g/dL (11.5-14.8); LYMPHOCYTES # (AUTO) 2.5 K/uL (0.8-4.8); LYMPHOCYTES % (AUTO) 46.4 % (20.0-44.0); MEAN CORPUSCULAR HGB CONC 33 g/dl (31.0-36.0); MEAN CORPUSCULAR VOLUME 93 fL (82-100); MONOCYTES # (AUTO) 0.4 K/uL (0.1-1.30); MONOCYTES % (AUTO) 6.6 % (2.0-12.0); NEUTROPHILS # (AUTO) 2.3 K/uL (1.8-8.9); NEUTROPHILS % (AUTO) 43.5 % (43.0-81.0); PLATELET COUNT (AUTO) 183 K/uL (150-450); RED BLOOD CELL COUNT(AUTO) 4.71 MIL/uL (4.0-5.2); WHITE BLOOD COUNT (AUTO) 5.4 K/uL (4.3-11.0)
[2022-10-15 09:02] LABS: BILIRUBIN,TOTAL 0.5 mg/dL (0.2-1.0); CALCIUM, SERUM 9.1 mg/dL (8.5-10.1); CREATININE 0.8 mg/dL (0.6-1.3); POTASSIUM 3.8 mmol/L (3.5-5.1); TOTAL PROTEIN, SERUM 7.6 g/dL (6.4-8.2)
== END 2022-10-15 23:59 | disposition home or self-care (01) ==
LOC: LAB 08:19
PROVIDERS: ATTEND Internal Medicine Hematology & Oncology
DX: Z13.228 Encounter for screening for other metabolic disorders (principal); D64.9 Anemia, unspecified; R79.1 Abnormal coagulation profile
CPT/HCPCS: 36415; 80053-TC; 85025-TC; 85378-TC

== ENCOUNTER 2022-12-03 08:14 | Outpatient (CLI) | payer BC, OTHER ==
[2022-12-03 08:43] LABS: BASOPHILS % (AUTO) 0.7 % (0.0-2.0); HEMATOCRIT 41 % (33-45); HEMOGLOBIN 13.8 g/dL (11.5-14.8); LYMPHOCYTES # (AUTO) 3.2 K/uL (0.8-4.8); LYMPHOCYTES % (AUTO) 50.4 % (20.0-44.0); MEAN CORPUSCULAR HGB CONC 33 g/dl (31.0-36.0); MEAN CORPUSCULAR VOLUME 93 fL (82-100); MONOCYTES # (AUTO) 0.4 K/uL (0.1-1.30); MONOCYTES % (AUTO) 6.9 % (2.0-12.0); NEUTROPHILS # (AUTO) 2.5 K/uL (1.8-8.9); PLATELET COUNT (AUTO) 173 K/uL (150-450); RED BLOOD CELL COUNT(AUTO) 4.47 MIL/uL (4.0-5.2); WHITE BLOOD COUNT (AUTO) 6.4 K/uL (4.3-11.0)
[2022-12-03 08:53] LABS: ALBUMIN 3.5 g/dL (3.4-5.0); BILIRUBIN,TOTAL 0.4 mg/dL (0.2-1.0); CALCIUM, SERUM 8.9 mg/dL (8.5-10.1); CREATININE 0.9 mg/dL (0.6-1.3); POTASSIUM 3.9 mmol/L (3.5-5.1); TOTAL PROTEIN, SERUM 7.1 g/dL (6.4-8.2)
== END 2022-12-03 23:59 | disposition home or self-care (01) ==
LOC: LAB 08:14
PROVIDERS: ATTEND Internal Medicine Hematology & Oncology
DX: Z13.228 Encounter for screening for other metabolic disorders (principal); D64.9 Anemia, unspecified; R79.1 Abnormal coagulation profile
CPT/HCPCS: 36415; 80053-TC; 85025-TC; 85378-TC

== ENCOUNTER 2023-02-27 19:45 | Emergency (ER) | payer BC, OTHER ==
[~2023-02-27] VITALS: Ht 154.9 cm; Wt 65.8 kg
[2023-02-27] MEDS ORDERED: IOHEXOL-350 100 ML VIAL IV ONE (21:15)
[2023-02-27] MEDS ORDERED: CT SWABBABLE VALVE TRANS SET 1 EA INFUS.SET MC ONE (21:15)
[2023-02-27 21:17] LABS: BASOPHILS % (AUTO) 0.3 % (0.0-2.0); EOSINOPHILS # (AUTO) 0.1 K/uL (0.0-0.7); EOSINOPHILS % (AUTO) 1.2 % (0.0-6.0); HEMATOCRIT 46 % (33-45); HEMOGLOBIN 15.3 g/dL (11.5-14.8); LYMPHOCYTES # (AUTO) 0.6 K/uL (0.8-4.8); MEAN CORPUSCULAR HEMOGLOBIN 31 PG (26.0-33.0); MEAN CORPUSCULAR HGB CONC 33 g/dl (31.0-36.0); MEAN CORPUSCULAR VOLUME 93 fL (82-100); MONOCYTES # (AUTO) 0.3 K/uL (0.1-1.30); MONOCYTES % (AUTO) 4.3 % (2.0-12.0); NEUTROPHILS # (AUTO) 6.2 K/uL (1.8-8.9); NEUTROPHILS % (AUTO) 86.2 % (43.0-81.0); PLATELET COUNT (AUTO) 148 K/uL (150-450); RED BLOOD CELL COUNT(AUTO) 4.98 MIL/uL (4.0-5.2); RED CELL DISTRIBUTION WIDTH 13.5 % (11.5-15.0); WHITE BLOOD COUNT (AUTO) 7.2 K/uL (4.3-11.0)
[2023-02-27 21:26] LABS: CALCIUM, SERUM 9.1 mg/dL (8.5-10.1); CARBON DIOXIDE 27 mmol/L (21-32); CHLORIDE 105 mmol/L (98-107); CREATININE 0.9 mg/dL (0.6-1.3); GLUCOSE 141 mg/dL (74-106); POTASSIUM 3.9 mmol/L (3.5-5.1); SODIUM SERUM 142 mmol/L (136-145); UREA NITROGEN, BLOOD 17 mg/dL (7-18)
[2023-02-27 21:32] LABS: ALANINE AMINOTRANSFERASE 20 U/L (12-78); ALBUMIN 3.9 g/dL (3.4-5.0); ALKALINE PHOSPHATASE 79 U/L (46-116); ASPARTATE AMINOTRANSFERASE 18 U/L (15-37); BILIRUBIN,TOTAL 0.8 mg/dL (0.2-1.0); TOTAL PROTEIN, SERUM 7.8 g/dL (6.4-8.2)
[2023-02-27] MEDS ORDERED: ONDA4TAB5 PO (22:53)
[2023-02-27] MEDS ORDERED: ACETAMINOPHEN 325 MG TABLET ONE (22:55)
[2023-02-27] MEDS ORDERED: ONDANSETRON 4 MG TAB.RAPDIS ONE (22:55)
[2023-02-27] MEDS ORDERED: ONDANSETRON HCL/PF 4 MG/2 ML VIAL IV ONE (23:00)
[2023-02-27] MEDS ORDERED: ACETAMINOPHEN 325 MG TABLET PO ONE (23:00)
[2023-02-27 23:22] VITALS: BP 145/89; TEMP 98; O2SAT 98
== END 2023-02-27 23:10 | disposition home or self-care (01) ==
LOC: ER 19:49
DX: R19.7 Diarrhea, unspecified (principal); R06.02 Shortness of breath; R06.00 Dyspnea, unspecified; R10.9 Unspecified abdominal pain; Z98.890 Other specified postprocedural states; Z20.822 Contact with and (suspected) exposure to COVID-19; Z79.899 Other long term (current) drug therapy; Z87.442 Personal history of urinary calculi
CPT/HCPCS: 99285; 71275; 96374; 87426; 93005; 74177; 85025; 36415; 80053; 84484; Q0162; Q9967; C9803

== ENCOUNTER 2023-09-20 08:02 | Emergency (ER) | payer BC, OTHER ==
[~2023-09-20] VITALS: Ht 154.9 cm; Wt 65.8 kg
[~2023-09-20 08:02] MED LIST changes: +ONDA4TAB5 PO
[2023-09-20 08:14] VITALS: BP 132/78; TEMP 98.1
[2023-09-20] MEDS ORDERED: KETO10DR3 EACHEYE (08:27)
[2023-09-20] MEDS ORDERED: POLY10DR3 EACHEYE (08:27)
[2023-09-20 08:39] VITALS: O2SAT 98
== END 2023-09-20 08:39 | disposition home or self-care (01) ==
LOC: ER 08:08
DX: I10 Essential (primary) hypertension (principal); H10.13 Acute atopic conjunctivitis, bilateral

== ENCOUNTER 2023-11-17 07:50 | Outpatient (CLI) | payer BC, OTHER ==
[~2023-11-17 07:50] MED LIST changes: +KETO10DR3 EACHEYE; +POLY10DR3 EACHEYE
[2023-11-17 09:32] LABS: BASOPHILS # (AUTO) 0.1 K/uL (0.0-0.2); BASOPHILS % (AUTO) 0.9 % (0.0-2.0); EOSINOPHILS # (AUTO) 0.2 K/uL (0.0-0.7); EOSINOPHILS % (AUTO) 2.9 % (0.0-6.0); HEMATOCRIT 43 % (33-45); HEMOGLOBIN 14.5 g/dL (11.5-14.8); LYMPHOCYTES # (AUTO) 3.1 K/uL (0.8-4.8); LYMPHOCYTES % (AUTO) 45.6 % (20.0-44.0); MEAN CORPUSCULAR HEMOGLOBIN 31 PG (26.0-33.0); MEAN CORPUSCULAR HGB CONC 34 g/dl (31.0-36.0); MEAN CORPUSCULAR VOLUME 92 fL (82-100); MONOCYTES # (AUTO) 0.4 K/uL (0.1-1.30); MONOCYTES % (AUTO) 6.4 % (2.0-12.0); NEUTROPHILS % (AUTO) 44.2 % (43.0-81.0); PLATELET COUNT (AUTO) 209 K/uL (150-450); RED BLOOD CELL COUNT(AUTO) 4.66 MIL/uL (4.0-5.2); RED CELL DISTRIBUTION WIDTH 13.8 % (11.5-15.0); WHITE BLOOD COUNT (AUTO) 6.8 K/uL (4.3-11.0)
[2023-11-17 09:52] LABS: ALBUMIN 3.5 g/dL (3.4-5.0); BILIRUBIN,TOTAL 0.3 mg/dL (0.2-1.0); CALCIUM, SERUM 8.8 mg/dL (8.5-10.1); CREATININE 0.8 mg/dL (0.6-1.3); POTASSIUM 3.9 mmol/L (3.5-5.1); TOTAL PROTEIN, SERUM 7.7 g/dL (6.4-8.2)
== END 2023-11-17 23:59 | disposition home or self-care (01) ==
LOC: LAB 07:50
PROVIDERS: ATTEND Internal Medicine Hematology & Oncology
DX: Z13.228 Encounter for screening for other metabolic disorders (principal); D64.9 Anemia, unspecified; R79.1 Abnormal coagulation profile
CPT/HCPCS: 36415; 80053-TC; 85025-TC; 85378-TC

== ENCOUNTER 2024-03-03 08:11 | Outpatient (CLI) | payer BC, OTHER ==
[2024-03-03 08:50] LABS: BASOPHILS % (AUTO) 0.6 % (0.0-2.0); EOSINOPHILS # (AUTO) 0.2 K/uL (0.0-0.7); EOSINOPHILS % (AUTO) 3.3 % (0.0-6.0); HEMATOCRIT 44 % (33-45); HEMOGLOBIN 14.4 g/dL (11.5-14.8); LYMPHOCYTES # (AUTO) 2.5 K/uL (0.8-4.8); LYMPHOCYTES % (AUTO) 48.1 % (20.0-44.0); MEAN CORPUSCULAR HEMOGLOBIN 31 PG (26.0-33.0); MEAN CORPUSCULAR HGB CONC 33 g/dl (31.0-36.0); MEAN CORPUSCULAR VOLUME 93 fL (82-100); MONOCYTES # (AUTO) 0.4 K/uL (0.1-1.30); MONOCYTES % (AUTO) 7.1 % (2.0-12.0); NEUTROPHILS # (AUTO) 2.2 K/uL (1.8-8.9); NEUTROPHILS % (AUTO) 40.9 % (43.0-81.0); PLATELET COUNT (AUTO) 177 K/uL (150-450); RED BLOOD CELL COUNT(AUTO) 4.69 MIL/uL (4.0-5.2); RED CELL DISTRIBUTION WIDTH 13.6 % (11.5-15.0); WHITE BLOOD COUNT (AUTO) 5.3 K/uL (4.3-11.0)
[2024-03-03 09:14] LABS: ALBUMIN 3.6 g/dL (3.4-5.0); BILIRUBIN,TOTAL 0.4 mg/dL (0.2-1.0); CALCIUM, SERUM 9.3 mg/dL (8.5-10.1); CREATININE 0.8 mg/dL (0.6-1.3); POTASSIUM 4.4 mmol/L (3.5-5.1); TOTAL PROTEIN, SERUM 7.4 g/dL (6.4-8.2)
== END 2024-03-03 23:59 | disposition home or self-care (01) ==
LOC: LAB 08:11
PROVIDERS: ATTEND Internal Medicine Hematology & Oncology
DX: Z13.228 Encounter for screening for other metabolic disorders (principal); D64.9 Anemia, unspecified; R79.1 Abnormal coagulation profile
CPT/HCPCS: 36415; 80053-TC; 85025-TC; 85378-TC

== ENCOUNTER 2025-06-02 08:08 | Outpatient (CLI) | payer BC, OTHER | END 2025-06-02 23:59 | disposition home or self-care (01) | LOC: CARD 08:08 | PROVIDERS: ATTEND Internal Medicine Hematology & Oncology | DX: I82.431 Acute embolism and thrombosis of right popliteal vein (principal); M79.661 Pain in right lower leg; M79.89 Other specified soft tissue disorders | CPT/HCPCS: 93971-TC ==